=== PATIENT | female | born 1945 | race Caucasian/White ===

== ENCOUNTER 2018-06-13 05:45 | Day surgery (SDC) | payer OTHER ==
[2018-06-13] MEDS ORDERED: CARAFATE1 GM PO (09:41)
== END 2018-06-13 11:10 | disposition home or self-care (01) ==
LOC: AMB-ENDOS 05:45
DX: K29.50 Unspecified chronic gastritis without bleeding (principal); Z85.038 Personal history of other malignant neoplasm of large intestine; K55.20 Angiodysplasia of colon without hemorrhage